=== PATIENT | male | born 1985 | race Caucasian/White ===

== ENCOUNTER 2018-07-07 12:07 | Emergency (ER) | payer MEDICAID ==
[~2018-07-07] VITALS: Ht 177.8 cm; Wt 70.0 kg
[2018-07-07 12:44] VITALS: BP 165/103
--- NOTE | 2018-07-07 13:01 | NUR ---
PT TO ROOM FROM LOBBY.
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
--- NOTE | 2018-07-07 13:46 | NUR ---
ERP IN TO SEE PT.
[2018-07-07] MEDS ORDERED: DIAZEPAM 5 MG TABLET PO ONE (13:48)
[2018-07-07] MEDS ORDERED: DIAZEPAM 5 MG TABLET ONE (14:02)
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
== END 2018-07-07 15:13 | disposition home or self-care (01) ==
LOC: ED 15:10
DX: F15.151 Other stimulant abuse with stimulant-induced psychotic disorder with hallucinations (principal); F22 Delusional disorders
CPT/HCPCS: 99282

== ENCOUNTER 2018-07-17 03:57 | Emergency (ER) | payer MEDICAID ==
[~2018-07-17] VITALS: Ht 190.5 cm; Wt 70.0 kg
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
[2018-07-17 04:36] LABS: MEAN CORPUSCULAR HEMOGLOBIN 31.6 pg (27.5-34.5); MEAN CORPUSCULAR HGB CONC 33.9 g/dL (33.2-36.2); MEAN CORPUSCULAR VOLUME 93.2 fL (81-97); MEAN PLATELET VOLUME 9.7 fL (7.4-10.4); PLATELET COUNT 327 x10^3/uL (130-400); RED BLOOD COUNT 4.57 x10^6/uL (4.38-5.82); RED CELL DISTRIBUTION WIDTH 13.2 % (9.4-14.8)
--- NOTE | 2018-07-17 04:40 | NUR ---
PT IN CT WITH SECURITIES.
--- NOTE | 2018-07-17 04:46 | NUR ---
PT WAS NOT ABLE TO PROVIDE URINE SAMPLE AT THIS TIME.
[2018-07-17 04:49] LABS: ALANINE AMINOTRANSFERASE 28 U/L (12-78); ANION GAP 6 mmol/L (5-15); CALCIUM 8.9 mg/dL (8.5-10.1); CHLORIDE 111 mmol/L (98-107); CREATININE 1.19 mg/dL (0.7-1.3)
[2018-07-17 04:50] LABS: ACETAMINOPHEN < 2 mcg/mL (10-30); SALICYLATE LEVEL < 1.7 mg/dL (2.8-20.0)
[2018-07-17 04:51] LABS: ALKALINE PHOSPHATASE 83 U/L (45-117); BILIRUBIN,TOTAL 0.5 mg/dL (0.2-1.0); TOTAL PROTEIN 7.6 g/dL (6.4-8.2)
[2018-07-17] MEDS ORDERED: DIPH,PERTUSS(ACELL),TET VAC/PF 0.5 ML IM-VACC ONE ×2 (05:00)
--- NOTE | 2018-07-17 05:29 | NUR ---
PT SLEEPING IN [facility]. SITTER MONITORING FROM [facility] FOR SAFETY. ROOM REMAINS SECURE.
[2018-07-17 05:48] LABS: BASOPHILS % (AUTO) 1 % (0-1); EOSINOPHILS # (AUTO) 0.01 x10^3/uL (0-0.4); EOSINOPHILS % (AUTO) 0 % (1-7); LYMPHOCYTES # (AUTO) 1.73 x10^3/uL (1-3.4); LYMPHOCYTES % (AUTO) 9 % (22-44); MD SCAN; MONOCYTES # (AUTO) 0.89 x10^3/uL (0.2-0.8); MONOCYTES % (AUTO) 5 % (2-9); NEUTROPHILS # (AUTO) 16.21 x10^3/uL (1.8-6.8); NEUTROPHILS % (AUTO) 86 % (42-75)
[2018-07-17] MEDS ORDERED: LIDOCAINE-MPF 1%, 5ML ONE (05:55)
[2018-07-17] MEDS ORDERED: LIDOCAINE-MPF 1%, 5ML INFIL ONE (06:00)
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
[2018-07-17] MEDS ORDERED: BACITRACIN ZINC OINT 500U/GM, 0.9 GM ONE ×2 (06:25→07:35)
[2018-07-17 06:32] VITALS: BP 106/60
--- NOTE | 2018-07-17 06:54 | NUR ---
REPORT GIVEN TO SHANT FUENTES.
--- NOTE | 2018-07-17 07:03 | NUR ---
Report from Marina FUENTES. Pt resting in bed, calm, cooperative. Locking wrist restraints on pt's R arm and L leg released. Discussed pt behavior expectations with pt. Pt verbalizes understanding that he is to remain calm and cooperative. Pt A&O x4. Pt given water to drink per request. Pt denies other needs. Room is secured, sitter within eyesight of pt.
--- NOTE | 2018-07-17 07:15 | NUR ---
Pt remains calm and cooperative. All restraints removed at this time.
--- NOTE | 2018-07-17 08:01 | NUR ---
[facility]AN CALLED [facility] FAXED
--- NOTE | 2018-07-17 08:04 | NUR ---
PATIENT DOES NOT HAVE ANTHEM, SOC CALLED
--- NOTE | 2018-07-17 08:16 | NUR ---
Pt resting in bed, eyes closed, resp even and unlabored, NADN. Meal tray ordered for pt.
--- NOTE | 2018-07-17 08:24 | NUR ---
Tele-psych maching placed in pt room. POC discussed with pt. He is agreeable to eval at this time.
--- NOTE | 2018-07-17 08:26 | NUR ---
Pt speaking with SOC Dr. Louis at this time.
--- NOTE | 2018-07-17 09:16 | NUR ---
Pt resting in bed with eyes closed, resp even and unlabored, NADN. Room remains secured, sitter within eyesight.
--- NOTE | 2018-07-17 10:21 | NUR ---
Pt continues resting in bed with eyes closed, resp even and unlabored, NADN. Room remains secured, sitter within eyesight. Meal tray delivered with SI precautions.
--- NOTE | 2018-07-17 11:10 | NUR ---
Pt cleared for dc by SOC, legal [address] Rowland. Pt provided with all his belongings as well as dc instructions. Pt verbalizes understanding, denies other needs.
== END 2018-07-17 12:19 | disposition home or self-care (01) ==
LOC: ED 07:41
DX: F22 Delusional disorders (principal); F15.10 Other stimulant abuse, uncomplicated; Z72.9 Problem related to lifestyle, unspecified; R51 Headache
CPT/HCPCS: 12001; 36415; 70450; 80053; 80307; 80329; 85025; 90471; 90715; G0480

== ENCOUNTER 2018-07-31 21:14 | Emergency (ER) | payer MEDICAID ==
--- NOTE | 2018-07-31 21:31 | NUR ---
PT CALLED FOR TRIAGE. NILx1.
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
== END 2018-07-31 21:45 | disposition home or self-care (01) ==
LOC: ED 21:39
DX: Z53.21 Procedure and treatment not carried out due to patient leaving prior to being seen by health care provider (principal)